=== PATIENT | male | born 1985 | race Caucasian/White ===

== ENCOUNTER 2020-08-29 06:23 | Emergency (ER) | payer OTHER ==
[2020-08-29 07:54] LABS: HEMOGLOBIN 15.7 gm/dl (14.0-17.5); RED BLOOD COUNT 5.18 M/UL (4.20-5.50); WHITE BLOOD COUNT 5.9 K/UL (4.5-11.0)
[2020-08-29 08:20] LABS: BUN/CREATININE RATIO 23 (0-10)
[2020-08-29] MEDS ORDERED: BAYER CHEWABLE81 MG PO (08:58)
== END 2020-08-29 08:50 | disposition home or self-care (01) ==
LOC: ER1 06:23
PROVIDERS: Emergency Medicine
DX: R10.11 Right upper quadrant pain (principal); R07.9 Chest pain, unspecified; R51.9 Headache, unspecified; F41.9 Anxiety disorder, unspecified; F17.210 Nicotine dependence, cigarettes, uncomplicated; Z90.49 Acquired absence of other specified parts of digestive tract
CPT/HCPCS: 71045; 80053; 81001; 82550; 82553; 83690; 83874; 84484; 85025; 93005; 99285